=== PATIENT | male | born 1990 | race Caucasian/White ===

== ENCOUNTER 2020-09-14 10:14 | Outpatient (REF) | payer OTHER, SELFPAY ==
[2020-09-15 04:19] LABS: HIV AB/AG Nonreactive (Nonreactive); HIV Num 1 0.07 S/CO (0.00-0.99)
== END 2020-09-14 10:15 | disposition home or self-care (01) ==
LOC: HO.MANLDS 10:14
PROVIDERS: PCP Internal Medicine; Visit Provider Physician Assistant
DX: Z11.4 Encounter for screening for human immunodeficiency virus [HIV] (principal)
CPT/HCPCS: 36415; 87389